=== PATIENT | male | born 1985 | race Two or more races ===

== ENCOUNTER 2019-06-08 16:45 | Emergency (ER) | payer OTHER ==
[~2019-06-08] VITALS: Ht 185.4 cm; Wt 75.7 kg
--- NOTE | 2019-06-08 17:20 | NUR ---
Cough and congestion, denies fever. Patient a/ox4, breathing even and unlabored, no sob noted. Kept comfortable. Ambulatory with steady gait.
--- NOTE | 2019-06-08 17:45 | NUR ---
Patient seen and evaluated by Dr. Rodarte.
--- NOTE | 2019-06-08 18:05 | NUR ---
patient refused blood draw, explained risks and benefits, still refused. Explained chest xray and agreed.
--- NOTE | 2019-06-08 18:06 | NUR ---
Patient walked around the room with spo2 monitoring, the lowest o2 sat on room air is 94% during ambulation. Patient denies feeling short of breath. Dr. Rodarte made aware.
--- NOTE | 2019-06-08 18:50 | NUR ---
xray done, result pending.
--- NOTE | 2019-06-08 19:24 | NUR ---
pt ok to discharge per dr Rodarte. Patient discharged to home in stable condition. Written and verbal after care instructions given. Patient verbalizes understanding of instruction.Patient is awake and alert to self, day, and place. pt ambulatory with a steady gait
[2019-06-08 19:26] VITALS: BP 128/71
== END 2019-06-08 19:26 | disposition home or self-care (01) ==
LOC: ER 16:51
DX: J06.9 Acute upper respiratory infection, unspecified (principal); R06.00 Dyspnea, unspecified
CPT/HCPCS: 71045-TC

== ENCOUNTER 2019-06-23 00:40 | Emergency (ER) | payer OTHER ==
[~2019-06-23] VITALS: Ht 188 cm; Wt 83.9 kg
--- NOTE | 2019-06-23 01:00 | NUR ---
BIBS FOR C/O "EXCRUCIATING ABD PAIN 4MONTHS, N/V X1 TONIGHT. ON ATB FOR (+) H-PYLORI. PT AMBULATORY TO BED 11. PLACED ON A MONITOR ,
[2019-06-23] MEDS ORDERED: PANTOPRAZOLE 40 MG VIAL ONE (01:18)
[2019-06-23] MEDS ORDERED: MAG HYDROX/AL HYDROX/SIMETH 30 ML UDC ONE (01:18)
[2019-06-23] MEDS ORDERED: LIDOCAINE VISCOUS 2% UD 15 ML UDC ONE (01:18)
[2019-06-23] MEDS ORDERED: DICYCLOMINE HCL 10 MG/5 ML UDC ONE (01:19)
[2019-06-23 01:23] LABS: BASOPHILS % (AUTO) 0.2 % (0.0-2.0); EOSINOPHILS % (AUTO) 12.1 % (0.0-6.0); HEMATOCRIT 50 % (39-51); HEMOGLOBIN 16.3 g/dL (13.5-17.5); LYMPHOCYTES # (AUTO) 1.3 /CMM (0.8-4.8); LYMPHOCYTES % (AUTO) 11.4 % (20.0-44.0); MEAN CORPUSCULAR HGB CONC 32 g/dl (31.0-36.0); MEAN CORPUSCULAR VOLUME 82 fL (80-96); MONOCYTES # (AUTO) 0.8 /CMM (0.1-1.30); MONOCYTES % (AUTO) 6.9 % (2.0-12.0); NEUTROPHILS # (AUTO) 7.6 /CMM (1.8-8.9); NEUTROPHILS % (AUTO) 69.4 % (43.0-81.0); PLATELET COUNT (AUTO) 230 /CMM (150-450); RED BLOOD CELL COUNT(AUTO) 6.12 MIL/uL (4.5-6.0)
[2019-06-23] MEDS ORDERED: PANTOPRAZOLE 40 MG VIAL IV ONE (01:30)
[2019-06-23] MEDS ORDERED: MAG HYDROX/AL HYDROX/SIMETH 30 ML UDC PO ONE (01:30)
[2019-06-23] MEDS ORDERED: LIDOCAINE VISCOUS 2% UD 15 ML UDC MM ONE (01:30)
[2019-06-23] MEDS ORDERED: DICYCLOMINE HCL 10 MG/5 ML UDC PO ONE (01:30)
[2019-06-23 01:31] LABS: CALCIUM, SERUM 9.1 mg/dL (8.5-10.1); CREATININE 1.4 mg/dL (0.6-1.3)
[2019-06-23] MEDS ORDERED: IV NS 0.9% 250 ML IV ONE (01:33)
[2019-06-23] MEDS ORDERED: IOHEXOL-300 100 ML VIAL IV ONE (01:33)
[2019-06-23 01:37] LABS: BILIRUBIN,DIRECT 0.1 mg/dL (0.0-0.2); BILIRUBIN,TOTAL 0.4 mg/dL (0.2-1.0); TOTAL PROTEIN, SERUM 8.4 g/dL (6.4-8.2)
--- NOTE | 2019-06-23 01:40 | NUR ---
us tech at the bed side
[2019-06-23] MEDS ORDERED: PANTOPRAZOLE 40 MG TABLET.DR PO ONE ×2 (01:44→02:00)
[2019-06-23] MEDS ORDERED: ONDANSETRON 4 MG TAB.RAPDIS ONE (01:44)
[2019-06-23] MEDS ORDERED: HYDROCODONE/APAP 5/325MG 1 EACH TABLET ONE (01:44)
--- NOTE | 2019-06-23 01:47 | NUR ---
pt refused IV line. made aware and new orders were placed by
[2019-06-23] MEDS ORDERED: HYDROCODONE/APAP 5/325MG 1 EACH TABLET PO ONE (02:00)
[2019-06-23] MEDS ORDERED: ONDANSETRON 4 MG TAB.RAPDIS SL ONE (02:00)
--- NOTE | 2019-06-23 03:28 | NUR ---
CALLED [facility] TO READ IMAGING
--- NOTE | 2019-06-23 03:45 | NUR ---
pt in bed awake. resting comfortably. breathing evenly. reported feeling better. VS. will cont to monitor,
--- NOTE | 2019-06-23 03:52 | NUR ---
called [facility] for abd/ pelvic CT read "We will have it read for u"
--- NOTE | 2019-06-23 04:27 | NUR ---
DR. VALIENTE AT THE BED SIDE
--- NOTE | 2019-06-23 04:36 | NUR ---
PT IS MEDICALLY CLEAR FOR D/C PER MD. Patient discharged to home in stable condition. rx and Written and verbal after care instructions given. Patient verbalizes understanding of instruction.
[2019-06-23 04:37] VITALS: BP 128/85
== END 2019-06-23 04:38 | disposition home or self-care (01) ==
LOC: ER 00:41
DX: G89.29 Other chronic pain (principal); R10.33 Periumbilical pain; R11.10 Vomiting, unspecified
CPT/HCPCS: 36415; 71045; 74176; 76705; 80048; 80076; 83690; 85025; 85730; 93005; 99285; J7050; Q0162; Q9967; C9113